=== PATIENT | female | born 1985 | race Caucasian/White ===

== ENCOUNTER 2017-03-11 08:25 | Emergency (ER) | payer SELFPAY ==
[2017-03-11] MEDS ORDERED: IBUPROFEN 800 MG TABLET PO ONE (08:53)
--- NOTE | 2017-03-11 09:00 | ER Document Report ---
HPI - HPI Patient complains to provider of: left foot pain Onset: Yesterday Onset/Duration: Sudden Quality of pain: Achy Severity: Moderate Pain Level: 4 Context: Presents emergency department with complaints of left dorsal foot pain. Patient reports she tripped and fell down some steps yesterday. Reports history of calcaneus fracture to the same foot. Denies other symptoms such as fever vomiting diarrhea. Reports it hurts to walk. Associated Symptoms: None Exacerbated by: Walking Relieved by: Denies Similar symptoms previously: No Recently seen / treated by doctor: No - DERM Skin Color: Normal Past Medical History - General Information source: Patient Last Menstrual Period: 2 weeks ago - Social History Smoking Status: Unknown if Ever Smoked Cigarette use (# per day): No Frequency of alcohol use: None Drug Abuse: None Family History: None Patient has suicidal ideation: No Patient has homicidal ideation: No Pulmonary Medical History: Reports: Hx Asthma Renal/ Medical History: Denies: Hx Peritoneal Dialysis Traumatic Medical History: Reports: Hx Fractures Past Surgical History: Reports: Hx Section, Hx Orthopedic Surgery Vertical Provider Document - CONSTITUTIONAL Agree With Documented VS: Yes Exam Limitations: No Limitations General Appearance: WD/WN, No Apparent Distress - INFECTION CONTROL TRAVEL OUTSIDE OF THE [place] IN LAST 30 DAYS: No - HEENT HEENT: Atraumatic, Normocephalic - NECK Neck: Supple - RESPIRATORY Respiratory: Breath Sounds Normal O2 Sat by Pulse Oximetry: 98 - CARDIOVASCULAR Cardiovascular: Regular Rate - MUSCULOSKELETAL/EXTREMETIES Musculoskeletal/Extremeties: MAEW, FROM, Tender - left foot dorsal ttp, no obvious deformity, slight swelling, ecchymosis, good pedal pulse, brisk cap refill, - NEURO Level of Consciousness: Awake, Alert, Appropriate Motor/Sensory: No Motor Deficit - DERM Integumentary: Warm, Dry Adult Front & Back Diagram: 1 - ttp Course - Vital Signs Vital signs: Temp Pulse Resp BP Pulse Ox 98.4 F 64 18 117/63 98 03/11/17 08:28 03/11/17 08:28 03/11/17 08:28 03/11/17 08:28 03/11/17 08:28 - Diagnostic Test Radiology reviewed: Image reviewed, Reports reviewed Procedures - Immobilization Left Foot Pre-Proc Neuro Vasc Exam: Normal Immobilizer type: Posterior ankle Post-Proc Neuro Vasc Exam: Unchanged from pre-exam Discharge - Discharge Clinical Impression: Foot pain, left, left fifth metatarsal fracture Condition: Stable Disposition: HOME, SELF-CARE Instructions: Foot Fracture ([facility]), Splint Pending Casting ([facility]), Use of Crutches ([facility]), Oral Narcotic Medication ([facility]) Additional Instructions: *You have been evaluated for left foot fracture, fifth distal metatarsal fracture *Maintain the splint, use the crutches, no weight bearing *Rest/Ice/Elevate your foot *Follow up with orthopedics-call for an appointment *Take medication as prescribed *Return to ED for worsening condition, changes, needs Prescriptions: Oxycodone HCl/Acetaminophen [Percocet 5-325 mg Tablet] 1 - 2 tab PO ASDIR PRN # 15 tablet PRN Reason: Referrals: [facility] ([place]) [Provider Group] (call today for an appointment)
--- NOTE | 2017-03-11 09:39 | RADIOLOGY REPORT (SQ) ---
EXAM DESCRIPTION: FOOT LEFT COMPLETE COMPLETED DATE/TIME: 03/11/2017 9:28 am REASON FOR STUDY: fell down steps, pain COMPARISON: None. NUMBER OF VIEWS: Three views. TECHNIQUE: AP, lateral and oblique radiographic images acquired of the left foot. LIMITATIONS: None. FINDINGS: MINERALIZATION: Normal. BONES: Acute nondisplaced spiral fracture with small butterfly fragment, left 5th metatarsal distal d iaphysis. No extension into the 5th MTP joint. JOINTS: No effusions. SOFT TISSUES: Lateral forefoot soft tissue swelling. No foreign body. OTHER: No other significant finding. IMPRESSION: Acute nondisplaced spiral fracture with small butterfly fragment, left 5th distal metata rsal diaphysis TECHNICAL DOCUMENTATION: JOB ID: [id number] [employer]- All Rights Reserved
[2017-03-11 10:17] VITALS: BP 121/60
== END 2017-03-11 10:18 | disposition home or self-care (01) ==
LOC: ER 08:25
PROC: 2W3RX1Z Immobilization of Left Lower Leg using Splint (ICD-10-PCS; principal; 2017-03-11)
DX: S92.352A Displaced fracture of fifth metatarsal bone, left foot, initial encounter for closed fracture (principal); M79.672 Pain in left foot; W10.9XXA Fall (on) (from) unspecified stairs and steps, initial encounter
CPT/HCPCS: 99283

== ENCOUNTER 2017-03-25 19:21 | Emergency (ER) | payer SELFPAY ==
--- NOTE | 2017-03-25 20:17 | RADIOLOGY REPORT (SQ) ---
EXAM DESCRIPTION: FOOT LEFT COMPLETE COMPLETED DATE/TIME: 03/25/2017 8:09 pm REASON FOR STUDY: foot pain, previous fifth metatarsal fx COMPARISON: None. NUMBER OF VIEWS: Three views. TECHNIQUE: AP, lateral and oblique radiographic images acquired of the left foot. LIMITATIONS: None. FINDINGS: MINERALIZATION: Normal. BONES: Fracture of the distal 5th metatarsal is identified. No other evidence for fracture is seen. JOINTS: No effusions. SOFT TISSUES: No soft tissue swelling. No foreign body. OTHER: No other significant finding. IMPRESSION: Fracture of the distal 5th metatarsal TECHNICAL DOCUMENTATION: JOB ID: [id number] [employer] All Rights Reserved
--- NOTE | 2017-03-25 20:35 | ER Document Report ---
ED Extremity Problem, Lower - General Chief Complaint: Foot Injury Stated Complaint: LEFT FOOT INJURY Time Seen by Provider: 03/25/17 19:50 Notes: Patient is a 31-year-old female presents emergency department complaining of left foot pain. Patient was seen here on March 11 and diagnosed with a left midshaft fifth metatarsal fracture. Patient was placed in a splint and crutches and given instruction to follow-up with orthopedics. Patient states that she took her splint off about 5 days ago and has been walking without using her crutches. Patient states that her pain and swelling has gotten worse over the past 2 days and returns for reevaluation. Otherwise she denies any new injury or trauma. TRAVEL OUTSIDE OF THE [place] IN LAST 30 DAYS: No - Related Data Allergies/Adverse Reactions: No Known Allergies Allergy (Unverified 03/11/17 08:28) Past Medical History - Social History Smoking Status: Current Every Day Smoker Chew tobacco use (# tins/day): No Frequency of alcohol use: None Drug Abuse: None Family History: None Patient has suicidal ideation: No Patient has homicidal ideation: No Pulmonary Medical History: Reports: Hx Asthma Renal/ Medical History: Denies: Hx Peritoneal Dialysis Traumatic Medical History: Reports: Hx Fractures Past Surgical History: Reports: Hx Section, Hx Orthopedic Surgery - Immunizations Hx Diphtheria, Pertussis, Tetanus Vaccination: Yes Review of Systems - Review of Systems Constitutional: No symptoms reported Musculoskeletal: See HPI Neurological/Psychological: See HPI -: Yes All other systems reviewed and negative Physical Exam - Vital signs Vitals: Temp Pulse Resp BP Pulse Ox 99.2 F 68 16 108/57 L 99 03/25/17 19:50 03/25/17 19:50 03/25/17 19:50 03/25/17 19:50 03/25/17 19:50 - General General appearance: Appears well, Alert In distress: None - Cardiovascular Pulses: Normal: Dorsalis pedis Normal capillary refill: Yes - Extremities Foot: Tender - over 5th metatarsal of the left foot, Edema, Metatarsal compress. pain, Tender 5th metatarsal. No: Abrasion, Deformity, Ecchymosis, Nail injury, Unable to bear weight - Neurological Motor strength normal: LUE, RUE, LLE, RLE Sensory: Normal - Skin Skin Temperature: Warm Skin Moisture: Dry Skin Color: Normal Skin Turgor: Elastic Course - Re-evaluation Re-evalutation: 03/25/17 21:33 Patient is a 31-year-old female is hemodynamic stable, no acute distress. Imaging shows stable left fifth midshaft metatarsal fracture without displacement. Patient educated on keeping the splint on and no weightbearing. Until cleared by an orthopedic surgeon. Patient given contact information for [facility] for possibly lower co-pay. Patient educated on following up with school social worker office for possibly getting her Medicaid. Otherwise lower extremities neurovascularly intact. Patient stable for discharge home - Vital Signs Vital signs: Temp Pulse Resp BP Pulse Ox 98.5 F 67 18 111/63 98 03/25/17 21:00 03/25/17 21:00 03/25/17 21:00 03/25/17 21:00 03/25/17 21:00 - Diagnostic Test Radiology reviewed: Image reviewed, Reports reviewed Discharge - Discharge Clinical Impression: Fracture of fifth metatarsal bone Qualifiers: Encounter type: subsequent encounter Fracture type: closed Fracture alignment: nondisplaced Laterality: left Fracture healing: with routine healing Qualified Code(s): S92.355D - Nondisplaced fracture of fifth metatarsal bone, left foot, subsequent encounter for fracture with routine healing Condition: Good Disposition: HOME, SELF-CARE Instructions: Fractured Fifth Metacarpal ([facility]), Use of Crutches ([facility]), Ice & Elevation ([facility]), Gilberto Wrap ([facility]) Additional Instructions: [facility] Address: [facility] [place] [address] Prescriptions: Ibuprofen [Motrin 800 mg Tablet] 800 mg PO Q8H PRN #30 tab PRN Reason: Referrals: JIMY LOZA MD [ACTIVE STAFF] - Follow up in 3-5 days
[2017-03-25] MEDS ORDERED: TRAMADOL HCL 50 MG TABLET PO ONE (20:37)
[2017-03-25 21:24] VITALS: BP 111/63
== END 2017-03-25 21:18 | disposition home or self-care (01) ==
LOC: ER 19:21
DX: S92.355D Nondisplaced fracture of fifth metatarsal bone, left foot, subsequent encounter for fracture with routine healing (principal); X58.XXXD Exposure to other specified factors, subsequent encounter; F17.200 Nicotine dependence, unspecified, uncomplicated
CPT/HCPCS: 99283